=== PATIENT | male | born 1960 | race Hispanic/Latino ===

== ENCOUNTER → 2024-03-01 | Day surgery (SDC) | payer OTHER ==
[~2024-03-01] MED LIST: DEXMEDETOMIDINE HCL 200 MCG/2 ML VIAL ONE; FLOMAX0.4 MG PO; FLONASE ALLERG9.9 ML INH; LEVOCETIRIZINE D5 MG PO; LIDOCAINE HCL 2% LOCAL INJ 5 ML SDV VIAL INJ ONE; LIPITOR10 MG PO; METFORMIN HCL500 MG PO; OMEGA 3 1,0001 EACH PO; OSTEO BI-FLEX1 EAC2 PO; PANTOPRAZOLE SO40 MG PO; PROPOFOL IV EMULSION 10 MG/ML 20 ML VIAL ONE; ZESTRIL10 MG PO; [UNRECOGNIZED DRUG - OTHER] PO
[2024-03-01] MEDS: LACTATED RINGER'S 1,000 ML ONE (09:55)
[2024-03-01 11:32] VITALS: BP 116/78; PULSE 81; RESP 17; O2SAT 97
== END | disposition home or self-care (01) ==
LOC: OR 09:10
PROVIDERS: ATTEND Internal Medicine Gastroenterology
DX: Z09 Encounter for follow-up examination after completed treatment for conditions other than malignant neoplasm (principal); D12.2 Benign neoplasm of ascending colon; K57.30 Diverticulosis of large intestine without perforation or abscess without bleeding; K64.8 Other hemorrhoids; K21.9 Gastro-esophageal reflux disease without esophagitis; I10 Essential (primary) hypertension; E78.5 Hyperlipidemia, unspecified; E11.9 Type 2 diabetes mellitus without complications; N40.0 Benign prostatic hyperplasia without lower urinary tract symptoms; Z01.810 Encounter for preprocedural cardiovascular examination; Z79.84 Long term (current) use of oral hypoglycemic drugs; Z79.899 Other long term (current) drug therapy
CPT/HCPCS: 45385; 93005; J2001; J2704; J7121; 45378